=== PATIENT | male | born 1970 | race Caucasian/White ===

== ENCOUNTER 2021-12-04 08:55 | Day surgery (SDC) | payer BC, OTHER ==
[2021-12-02 14:02] LABS: Potassium 3.8 mmol/L (3.5-5.1)
[2021-12-02 14:07] LABS: Absolute Lymphocytes (CBC) 2.2 K/uL (0.7-4.9); Hematocrit 44.4 % (39.6-49.0); Lymphocytes % 33.9 % (15.3-44.8); MCV 92.1 fL (80-100); MPV 8.6 fL (7.6-11.3); RBC Red Blood Cell Count 4.82 M/uL (4.33-5.43)
--- NOTE | 2021-12-03 13:58 | EKG ---
Test Date: 2021-12-02 Test Time: 13:32:29 [employer]: LEONEL MEASUREMENT RESULTS: Intervals: Rate: 54 IN: 174 QRSD: 158 QT: 442 QTc: 419 [place]: P: 31 IN: 174 QRS: -72 T: 21 INTERPRETIVE STATEMENTS: Sinus bradycardia Right bundle branch block Left anterior fascicular block Bifascicular block Abnormal ECG No previous ECG available for comparison Electronically Signed On 12-03-21 13:57:11 CDT by Uli Dominguez
[~2021-12-04 08:55] MED LIST: BUPIVACAINE 0.25% PF 30 ML VIAL ONE
[2021-12-04] MEDS ORDERED: FENTANYL CITR 100 MCG/2 ML ONE ×2 (09:11→10:48)
[2021-12-04] MEDS ORDERED: propofoL 200 MG/20 ML VIAL IV ONE (09:11)
[2021-12-04] MEDS ORDERED: ROCURONIUM 50 MG/5 ML VIAL IV ONE (09:11)
[2021-12-04] MEDS ORDERED: MIDAZOLAM HCL 2 MG/2 ML INJ ONE (09:12)
[2021-12-04] MEDS ORDERED: LIDOCAINE 1% MPF 5 ML VIAL ONE (09:12)
[2021-12-04] MEDS ORDERED: Ringers Lactate 1,000 ML IV ONE (09:29)
[2021-12-04] MEDS ORDERED: CEFAZOLIN 2 GM IN 0.9% NACL 2 GM/100 ML BAG ONE (09:29)
[2021-12-04] MEDS ORDERED: dexAMETHasone 10 MG/ML VIAL ONE (10:54)
[2021-12-04] MEDS ORDERED: GLYCOPYRROLATE 0.2 MG/ML SYR ONE (10:55)
[2021-12-04] MEDS ORDERED: KETOROLAC 30 MG/ML INJ ONE (10:55)
[2021-12-04] MEDS ORDERED: ONDANSETRON 4 MG/2 ML VIAL ONE (11:18)
[2021-12-04] MEDS ORDERED: NEOSTIGMINE 1 MG/ML -10 ML VIAL ONE (11:18)
[2021-12-04] MEDS ORDERED: EPHEDRINE SULF 50 MG/ML VIAL ONE (11:19)
[2021-12-04] MEDS ORDERED: NS 0.9% VIAL 10 ML ONE (11:19)
--- NOTE | 2021-12-04 11:28 | P.OP ---
Preoperative diagnosis: Ventral Umbilical Henria Postoperative diagnosis: Ventral Umbilical Henria Primary procedure: Laparoscopic Ventral Hernia Repair with Mths Anesthesia: GETA + Local Estimated blood loss: <5cc Specimen: none Findings: incarcerated omentum in ventral umbilical hernia Complications: None Implants: Bard Ventralite ST mesh 11.4cm, sorbafix Transferred to: Recovery Room Condition: Good
--- NOTE | 2021-12-04 12:27 | OP ---
Date of Procedure: 12/04/2021 Surgeon: Shane Ibarra MD, Preoperative Diagnosis: Ventral umbilical hernia. Postoperative Diagnosis: Ventral umbilical hernia. Procedure Performed: Laparoscopic ventral hernia repair with mesh. Anesthesia: General endotracheal plus local with 0.25% Marcaine. Estimated Blood Loss: Less than 5 cc. Specimen: None. Findings: Incarcerated omentum and ventral umbilical hernia. Complications: None. Implants: Bard Ventralight ST mesh with Echo Positioning System, 1.4 cm round mesh utilized, and Sor baFix absorbable fixation tacks. Disposition: Patient transferred to the recovery room in good condition. Procedure In Detail: After informed consent was obtained, the patient was brought to the operating r oom, prepped and draped in the usual sterile fashion. After adequate anesthesia was achieved, the ar ea of the left upper quadrant was anesthetized with 0.25% Marcaine, sharply incised. A 5 mm trocar w as placed under direct visualization without complication. Insufflation was obtained to 15 mmHg at t his time. There was no injury to vital structures upon entry into the abdomen. At this point, I att empted to manually reduce the omental contents from the umbilical hernia manually by palpation, which was unsuccessful. I placed additional trocar site in the left lower quadrant. This similarly anest hetized, sharply incised, and a 12 mm trocar was placed under direct visualization without any eviden ce of complication. I then took the LigaSure device to ligate the incarcerated omental fat from the hernia sac and removed it. At this point, we returned it to the normal anatomic position. After thi s was completed, I brought the Endo Stitch with the V-Loc and primarily closed the hernia defect, imb ricating the sac in a running fashion with good approximation apposition of the tissues. At this poi nt, the hernia was completely closed and brought back to the midline with fascia. At this point, I r esized the mesh appropriately and found an 11.[address] mesh with Echo Positioning Sys tem to be adequate. I deployed it in the center portion of the defect, grasping it with a Wes-SearchMan SEOo rodo suture passer, and then, deployed the balloon inflation system. I then secured a crown at this point of SorbaFix absorbable fixation tacks to the anterior abdomen wall with good approximation of tissues with apposition of the mesh to the anterior abdomen wall. I then removed the balloon deploym ent system and found to be intact on the back table. I then placed a total of 45 absorbable fixation tacks in a double crown type orientation to the anterior abdomen wall with good approximation of mes h to the anterior abdomen wall. I tested it under desufflation pressures and full inflation of 15 mm Hg. Mesh was found to be in good anatomic position. There was no bleeding at the end of the procedu re. I then rolled the patient away and closed the 12 mm trocar site using a Wes-Tiffanie suture p asser with 0 Vicryl in interrupted fashion with good approximation of tissues. The abdomen was then completely desufflated under direct vision without evidence of complication. The remaining trocars w ere removed. All skin incisions were copiously irrigated and closed with 4-0 Monocryl in running fas hion. Dermabond placed over top. The patient tolerated the procedure well without evidence of compl ication. The patient was transferred back in good condition. All counts were correct at the end of the case. NANDINI/GABRIEL Voice ID: [id number] Report ID: [id number]
[2021-12-04 13:03] VITALS: BP 95/64; TEMP 97; O2SAT 99
[2021-12-04] MEDS ORDERED: HYDROCODONE/APAP 10/325 TAB PO ONE (13:17)
[2021-12-04] MEDS ORDERED: HYDROCODONE/APAP 10/325 TAB ONE (13:30)
== END 2021-12-04 13:45 | disposition home or self-care (01) ==
LOC: OR 08:55
PROVIDERS: ATTEND Surgery
PROC: 0WUF4JZ Supplement Abdominal Wall with Synthetic Substitute, Percutaneous Endoscopic Approach (ICD-10-PCS; principal; 2021-12-04 10:45)
DX: K43.6 Other and unspecified ventral hernia with obstruction, without gangrene (principal); I10 Essential (primary) hypertension; E11.9 Type 2 diabetes mellitus without complications; E66.01 Morbid (severe) obesity due to excess calories
CPT/HCPCS: 93005; 85025; 80048; 36415; 49653; J2704; J2710; J2250; J3010 ×2; J1100; J0690; J7120; J2405; C1781; A4216; J2001